=== PATIENT | male | born 1960 | race Caucasian/White ===

== ENCOUNTER 2019-02-21 09:17 | Day surgery (SDC) | payer BC ==
[2019-02-21] MEDS ORDERED: LIDOcaine/PRILOcaine 5gm cream TP ONE (09:45)
[2019-02-21] MEDS ORDERED: CYAN100087 PO (10:11)
[2019-02-21] MEDS ORDERED: METF500T PO (10:11)
[2019-02-21] MEDS ORDERED: KRIL500C PO (10:11)
[2019-02-21] MEDS ORDERED: GLIM1TAB46 PO (10:11)
[2019-02-21] MEDS ORDERED: ASCO500C15 PO (10:11)
[2019-02-21] MEDS ORDERED: LANTUS SQ (10:11)
[2019-02-21] MEDS ORDERED: dextrose ORAL solution 15 GM/59 ML bottle ONE (10:25)
--- NOTE | 2019-02-21 16:34 | NUR ---
0930 Patient ambulated safely into [facility]. Patient admitted to outpatient wound care clinic for visit with physician. Patient assessed for conditions, medications and medical history. Patient showed no s/s of distress at time of assessment. Dressing removed, wound cleansed. 1000 at bedside accompanied by RN. Wounds assessed, time out performed and debridement done today as detailed in the physician progress/procedure note. Plan of care discussed with patient. Dressings placed per MD orders. Patient instructed on the signs and symptoms of infection and to call the Wound Center if any occur or to go to the ED if we are closed: Increased pain in wound Increase in drainage from the wound Redness in the skin surrounding the wound Bleeding from the wound Temperature of 101 or greater Patient instructed that elevated blood sugars delay healing of the wound and can cause further complications including but not limited to amputation of toes or feet. Pt instructed that they should not be disconnected from suction for more than 2 hours at a time. If they are not able to get the suction back on they need to remove the dressing and take all of the foam out of the wound, place hydrogel gauze on/in the wound, and change the dressing daily until someone can replace the dressing. Pt instructed to call the Wound Center or their Home Health Agency immediately if they notice a change in the color or amount of the fluid in the canister, their wound looks more red than usual or has a foul smell, the skin around their wound looks reddened or irritated, the dressing feels or appears loose, they experience pain or the alarm will not turn off. Pt instructed to call 911 or go to the ED if their canister fills rapidly with blood. Patient instructed that the weight of their body puts a large amount of pressure on their wounds. This pressure keeps the new tissue from growing and inhibits new blood vessels from forming. Explained that, if they continue to bear weight on a body part that has a wound, the time it takes to heal the wound increases, the wound may get worse or the wound may not heal at all. Patient verbalized understanding of all discharge instructions and plan of care. Patient ambulated independently out to [facility] and is in stable condition with no sign or symptom of distress at time of discharge.
== END 2019-02-21 11:20 | disposition home or self-care (01) ==
LOC: WOUND CARE 09:17
PROVIDERS: ATTEND Surgery
DX: T81.89XA Other complications of procedures, not elsewhere classified, initial encounter (principal); E11.622 Type 2 diabetes mellitus with other skin ulcer; L98.422 Non-pressure chronic ulcer of back with fat layer exposed; E11.65 Type 2 diabetes mellitus with hyperglycemia; M72.6 Necrotizing fasciitis; Z79.4 Long term (current) use of insulin; Y83.8 Other surgical procedures as the cause of abnormal reaction of the patient, or of later complication, without mention of misadventure at the time of the procedure
CPT/HCPCS: 36416; 82948; 97597; 97598; A4456

== ENCOUNTER 2019-02-28 09:15 | Day surgery (SDC) | payer BC ==
[~2019-02-28 09:15] MED LIST: ASCO500C15 PO; CYAN100087 PO; GLIM1TAB46 PO; KRIL500C PO; LANTUS SQ; METF500T PO
[2019-02-28] MEDS ORDERED: LIDOcaine/PRILOcaine 5gm cream TP ONE (10:02)
--- NOTE | 2019-02-28 15:12 | NUR ---
Patient ambulated independently from [facility] and was admitted to outpatient wound care for physician visit. Dressings removed, wound cleansed. Patient assessment completed with review of patient's medical history and current medications. Blood Glucose= 143@ 0948 1040-Dr. Vela at bedside accompanied by RN. Wound assessed, time-out performed by MD/RN. Wound debrided as detailed in the physician progress/procedure note. Plan of care discussed with patient. Dressings placed per MD orders. Patient instructed on the signs and symptoms of infection and to call the Wound Center if any occur or to go to the ED if we are closed: Increased pain in the wound Increase in drainage from the wound Redness in the skin surrounding the wound Bleeding from the wound Temperature of 101F or greater Patient instructed that the weight of their body puts a large amount of pressure on their wounds. This pressure keeps the new tissue from growing and inhibits new blood vessels from forming. Explained that, if they continue to bear weight on a body part that has a wound, the time it takes to heal the wound increases, the wound may get worse, or the wound may not heal at all. Patient verbalized understanding of all discharge instructions and plan of care. Patient ambulated independently out to [facility] in stable condition with no signs or symptoms of distress at time of discharge.
== END 2019-02-28 11:44 | disposition home or self-care (01) ==
LOC: WOUND CARE 09:15
PROVIDERS: ATTEND Surgery
DX: T81.89XD Other complications of procedures, not elsewhere classified, subsequent encounter (principal); E11.622 Type 2 diabetes mellitus with other skin ulcer; L98.422 Non-pressure chronic ulcer of back with fat layer exposed; E11.65 Type 2 diabetes mellitus with hyperglycemia; M72.6 Necrotizing fasciitis; Z79.4 Long term (current) use of insulin; Y83.8 Other surgical procedures as the cause of abnormal reaction of the patient, or of later complication, without mention of misadventure at the time of the procedure
CPT/HCPCS: 36416; 82948; 97597; 97598; A6207

== ENCOUNTER 2019-03-07 09:30 | Day surgery (SDC) | payer BC ==
[2019-03-07] MEDS ORDERED: LIDOcaine/PRILOcaine 5gm cream TP ONE (10:21)
--- NOTE | 2019-03-07 13:26 | NUR ---
Patient ambulated independently accompanied by his mother from [facility] and was admitted to outpatient wound care for physician visit with Ben Vela MD. Dressing removed, wound cleansed and Emla cream applied per order. Patient assessed for changes in conditions, medications and medical history. 1010 - blood glucose 101. Patient instructed that elevated blood sugars delay healing of the wound and can cause further complications including but not limited to amputation of toes or feet. 1055 - Dr. Vela at bedside accompanied by RN. Wound assessed, time out performed by MD/RN. Wound debrided as detailed in the physician progress/procedure note. Plan of care discussed with patient. Dressings placed per MD orders. Pt instructed that they should not be disconnected from suction for more than 2 hours at a time. If they are not able to get the suction back on they need to remove the dressing and take all of the foam out of the wound, place hydrogel gauze on/in the wound, and change the dressing daily until someone can replace the dressing. Pt instructed to call the Wound Center or their Home Health Agency immediately if they notice a change in the color or amount of the fluid in the canister, their wound looks more red than usual or has a foul smell, the skin around their wound looks reddened or irritated, the dressing feels or appears loose, they experience pain or the alarm will not turn off. Pt instructed to call 911 or go to the ED if their canister fills rapidly with blood. Patient instructed on the signs and symptoms of infection and to call the Wound Center if any occur or to go to the ED if we are closed: Increased pain in wound Increase in drainage from the wound Redness in the skin surrounding the wound Bleeding from the wound Temperature of 101 or greater Patient instructed that the weight of their body puts a large amount of pressure on their wounds. This pressure keeps the new tissue from growing and inhibits new blood vessels from forming. Explained that, if they continue to bear weight on a body part that has a wound, the time it takes to heal the wound increases, the wound may get worse or the wound may not heal at all. Patient verbalized understanding of all discharge instructions and plan of care and ambulated accompanied by his mother independently out to [facility] in stable condition with no sign or symptom of distress at time of discharge.
== END 2019-03-07 11:57 | disposition home or self-care (01) ==
LOC: WOUND CARE 09:30
PROVIDERS: ATTEND Surgery
DX: T81.89XD Other complications of procedures, not elsewhere classified, subsequent encounter (principal); E11.622 Type 2 diabetes mellitus with other skin ulcer; L98.422 Non-pressure chronic ulcer of back with fat layer exposed; E11.65 Type 2 diabetes mellitus with hyperglycemia; M72.6 Necrotizing fasciitis; Z79.4 Long term (current) use of insulin; Y83.8 Other surgical procedures as the cause of abnormal reaction of the patient, or of later complication, without mention of misadventure at the time of the procedure
CPT/HCPCS: 82948; 97597; 97598; A6222; A4456

== ENCOUNTER 2019-03-14 09:15 | Day surgery (SDC) | payer BC ==
--- NOTE | 2019-03-14 15:52 | NUR ---
0930 Patient ambulated safely into [facility]. Patient admitted to outpatient wound care clinic for follow-up visit with physician. Patient placed in isolation per isolation protocol. Dressing removed, wound cleansed. Patient assessed for changes in conditions, medications and medical history. Patient showed no s/s of distress at time of assessment. 1110 at bedside accompanied by RN. Wounds assessed, time out performed and debridement done today as detailed in the physician progress/procedure note. Plan of care discussed with patient. Dressings placed per MD orders. Pt instructed that they should not be disconnected from suction for more than 2 hours at a time. If they are not able to get the suction back on they need to remove the dressing and take all of the foam out of the wound, place hydrogel gauze on/in the wound, and change the dressing daily until someone can replace the dressing. Pt instructed to call the Wound Center or their Home Health Agency immediately if they notice a change in the color or amount of the fluid in the canister, their wound looks more red than usual or has a foul smell, the skin around their wound looks reddened or irritated, the dressing feels or appears loose, they experience pain or the alarm will not turn off. Pt instructed to call 911 or go to the ED if their canister fills rapidly with blood. Patient instructed on the signs and symptoms of infection and to call the Wound Center if any occur or to go to the ED if we are closed: Increased pain in wound Increase in drainage from the wound Redness in the skin surrounding the wound Bleeding from the wound Temperature of 101 or greater Patient instructed that the weight of their body puts a large amount of pressure on their wounds. This pressure keeps the new tissue from growing and inhibits new blood vessels from forming. Explained that, if they continue to bear weight on a body part that has a wound, the time it takes to heal the wound increases, the wound may get worse or the wound may not heal at all. Patient verbalized understanding of all discharge instructions and plan of care. Patient ambulated independently out to [facility] and is in stable condition with no sign or symptom of distress at time of discharge.
== END 2019-03-14 11:54 | disposition home or self-care (01) ==
LOC: WOUND CARE 09:15
PROVIDERS: ATTEND Surgery
DX: T81.89XD Other complications of procedures, not elsewhere classified, subsequent encounter (principal); E11.622 Type 2 diabetes mellitus with other skin ulcer; L98.422 Non-pressure chronic ulcer of back with fat layer exposed; E11.65 Type 2 diabetes mellitus with hyperglycemia; M72.6 Necrotizing fasciitis; Z79.4 Long term (current) use of insulin; Y83.8 Other surgical procedures as the cause of abnormal reaction of the patient, or of later complication, without mention of misadventure at the time of the procedure
CPT/HCPCS: 36416; 82948; 97597

== ENCOUNTER 2019-03-21 08:50 | Outpatient (CLI) | payer BC ==
[~2019-03-21 08:50] MED LIST changes: -ASCO500C15 PO; -CYAN100087 PO; -KRIL500C PO
--- NOTE | 2019-03-21 10:30 | NUR ---
Patient ambulated independently accompanied by sister from [facility] and was admitted to outpatient wound care for physician visit with Ben Vela MD. Dressing removed, wound cleansed. Patient assessed for changes in conditions, medications and medical history. 923 - blood glucose 110. Patient instructed that elevated blood sugars delay healing of the wound and can cause further complications including but not limited to amputation of toes or feet. 939 - Dr. Vela at bedside accompanied by RN. Wound assessed by MD, orders written. Plan of care discussed with patient. Dressings placed per MD orders. Patient instructed on the signs and symptoms of infection and to call the Wound Center if any occur or to go to the ED if we are closed: Increased pain in wound Increase in drainage from the wound Redness in the skin surrounding the wound Bleeding from the wound Temperature of 101 or greater Patient instructed that the weight of their body puts a large amount of pressure on their wounds. This pressure keeps the new tissue from growing and inhibits new blood vessels from forming. Explained that, if they continue to bear weight on a body part that has a wound, the time it takes to heal the wound increases, the wound may get worse or the wound may not heal at all. Patient verbalized understanding of all discharge instructions and plan of care and ambulated independently accompanied by sister out to [facility] in stable condition with no sign or symptom of distress at time of discharge.
[2019-03-21] MEDS ORDERED: hydrocortisone 1% cream 28gm TP ONE (10:46)
== END 2019-03-21 10:54 | disposition home or self-care (01) ==
LOC: WOUND CARE 08:50 → EDSTATUS 09:00 → WOUND CARE 10:54
PROVIDERS: ATTEND Surgery
DX: T81.89XD Other complications of procedures, not elsewhere classified, subsequent encounter (principal); E11.622 Type 2 diabetes mellitus with other skin ulcer; L98.422 Non-pressure chronic ulcer of back with fat layer exposed; E11.65 Type 2 diabetes mellitus with hyperglycemia; M72.6 Necrotizing fasciitis; Z79.4 Long term (current) use of insulin; Y83.8 Other surgical procedures as the cause of abnormal reaction of the patient, or of later complication, without mention of misadventure at the time of the procedure
CPT/HCPCS: 36416; 82948; A6223; G0463; A6243; A6446

== ENCOUNTER 2019-03-28 08:55 | Outpatient (CLI) | payer BC ==
--- NOTE | 2019-03-28 10:45 | NUR ---
Patient ambulated independently from [facility] accompanied by sister and was admitted to outpatient wound care for physician visit with Ben Vela MD. Dressing removed, wound cleansed and Emla cream applied per order. Patient assessed for changes in conditions, medications and medical history. Dr. Vela at bedside accompanied by RN. Wound assessed, time out performed by MD/RN. Wound assessed by MD, orders written. Plan of care discussed with patient and his sister. Dressings placed per MD orders. Patient instructed on the signs and symptoms of infection and to call the Wound Center if any occur or to go to the ED if we are closed: Increased pain in wound Increase in drainage from the wound Redness in the skin surrounding the wound Bleeding from the wound Temperature of 101 or greater Patient instructed that the weight of their body puts a large amount of pressure on their wounds. This pressure keeps the new tissue from growing and inhibits new blood vessels from forming. Explained that, if they continue to bear weight on a body part that has a wound, the time it takes to heal the wound increases, the wound may get worse or the wound may not heal at all. Patient and his sister verbalized understanding of all discharge instructions and plan of care and ambulated independently accompanied by his sister out to [facility] in stable condition with no sign or symptom of distress at time of discharge.
== END 2019-03-28 10:25 | disposition home or self-care (01) ==
LOC: WOUND CARE 08:55 → EDSTATUS 09:00 → WOUND CARE 10:25
PROVIDERS: ATTEND Surgery
DX: T81.89XD Other complications of procedures, not elsewhere classified, subsequent encounter (principal); E11.622 Type 2 diabetes mellitus with other skin ulcer; L98.422 Non-pressure chronic ulcer of back with fat layer exposed; E11.65 Type 2 diabetes mellitus with hyperglycemia; M72.6 Necrotizing fasciitis; Z79.4 Long term (current) use of insulin; Y83.8 Other surgical procedures as the cause of abnormal reaction of the patient, or of later complication, without mention of misadventure at the time of the procedure
CPT/HCPCS: A6223; G0463; A6243

== ENCOUNTER 2019-03-31 08:50 | Outpatient (CLI) | payer BC ==
[2019-03-31] MEDS ORDERED: LIDOcaine/PRILOcaine 5gm cream TP ONE (09:31)
--- NOTE | 2019-03-31 10:45 | NUR ---
Patient ambulated independently accompanied by sister from [facility] and was admitted to outpatient wound care for physician visit with Ben Vela MD. Dressing removed, wound cleansed and Emla cream applied per order. Patient assessed for changes in conditions, medications and medical history. 1020 - Dr. Vela at bedside accompanied by RN. Wound assessed by and is declared healed; patient is discharged from the wound clinic to follow up on an as needed basis. Plan of care discussed with patient and his sister. Dressings placed per MD orders. Patient instructed on the signs and symptoms of infection and to call the Wound Center if any occur or to go to the ED if we are closed: Increased pain in wound Increase in drainage from the wound Redness in the skin surrounding the wound Bleeding from the wound Temperature of 101 or greater Patient instructed that the weight of their body puts a large amount of pressure on their wounds. This pressure keeps the new tissue from growing and inhibits new blood vessels from forming. Explained that, if they continue to bear weight on a body part that has a wound, the time it takes to heal the wound increases, the wound may get worse or the wound may not heal at all. Patient and sister verbalized understanding of all discharge instructions and plan of care and ambulated independently accompanied by sister out to [facility] in stable condition with no sign or symptom of distress at time of discharge.
== END 2019-03-31 10:37 | disposition home or self-care (01) ==
LOC: WOUND CARE 08:50 → EDSTATUS 09:00 → WOUND CARE 10:37
PROVIDERS: ATTEND Surgery
DX: T81.89XD Other complications of procedures, not elsewhere classified, subsequent encounter (principal); E11.622 Type 2 diabetes mellitus with other skin ulcer; L98.422 Non-pressure chronic ulcer of back with fat layer exposed; E11.65 Type 2 diabetes mellitus with hyperglycemia; M72.6 Necrotizing fasciitis; Z79.4 Long term (current) use of insulin; Z98.890 Other specified postprocedural states; Y83.8 Other surgical procedures as the cause of abnormal reaction of the patient, or of later complication, without mention of misadventure at the time of the procedure
CPT/HCPCS: A6223; G0463; A6243